=== PATIENT | male | born 1960 | race Caucasian/White ===

== ENCOUNTER 2017-09-21 07:50 | Day surgery (SDC) | payer BC ==
[~2017-09-21 07:50] MED LIST: Lactated Ringers 1,000 ML IV SCH; Sodium Chloride 0.9% 10 ML Syringe FLUSH PRN
[2017-09-21] MEDS ORDERED: Midazolam 1 MG/ML 2 ML SDV ONE ×2 (09:01→09:06)
[2017-09-21] MEDS ORDERED: fentaNYL 100 MCG/2 ML SDV ONE ×2 (09:01→09:06)
[2017-09-21] MEDS ORDERED: Propofol 200 MG/20 ML SDV ONE (09:02)
[2017-09-21] MEDS ORDERED: Lidocaine 2% 5 ML SDV ONE (09:06)
--- NOTE | 2017-09-21 09:06 | PCM.HPR ---
H & P Addendum review - H & P Addendum Review Date of Original H & P: 08/30/17 Date Reviewed: 09/21/17 Time Reviewed: 09:00 Patient was Examined: Changes (Dysphasia has improved since taking Nexium daily)
--- NOTE | 2017-09-21 09:25 | PCM.OPNOTE ---
- General Post-Op/Procedure Note Date of Surgery/Procedure: 09/21/17 Operative Procedure(s): EGD with Bx Findings: Distal Esophagatis / erosion Pre Op Diagnosis: GERD with dysphasia Post-Op Diagnosis: Same Anesthesia Technique: MAC Primary Surgeon: Rigoberto Moncada Anesthesia Provider: Deysi Agosto Pathology: Distal Esophagus EBL in mLs: 0 Complications: None Condition: Good
[2017-09-21 09:50] VITALS: BP 114/81
--- NOTE | 2017-09-21 16:53 | OR ---
Date of Procedure: 09/21/2017 PREOPERATIVE DIAGNOSIS: Gastroesophageal reflux disease with dysphagia. POSTOPERATIVE DIAGNOSIS: Distal esophagitis with erosion. PROCEDURE: EGD with biopsy. ANESTHESIA: IV sedation. PROCEDURE: Patient was brought to the procedure room where he was placed on the left side and IV sedation administered. Oral bite block was placed and the upper endoscope advanced into the esophagus under direct vision without difficulty. Vocal cords were viewed and were normal. The scope was advanced to the 3rd portion of the duodenum. Duodenum and pylorus were normal. Antrum and body of the stomach were normal. Retroflexion reveals a normal-appearing fundus. No hiatal hernia is present. Squamocolumnar junction is slightly irregular and there is one erosion present in the distal esophagus. I did not see any evidence of Sun's esophagus. Photographs were taken. I did take 4- quadrant biopsies from the distal esophagus and sent for pathology review. No stricture was present. Air was removed from the stomach and the scope withdrawn through the remaining esophagus, which appears normal. The patient will follow up with Lauren Flores in 1 week for review of pathology report. His symptoms are much improved since he is now taking Nexium on a regular basis. I recommend he remain on this long-term as he seems to have worsening and recurrent symptoms when he misses his medication. No further followup is necessary. If any evidence of Sun's esophagus is present, he should undergo a repeat upper endoscopy again in 3 years. AMILCAR ADAMS MD /[id number]
== END 2017-09-21 10:51 | disposition home or self-care (01) ==
LOC: LL.SDS 07:50
PROVIDERS: ATTEND Surgery
DX: K21.0 Gastro-esophageal reflux disease with esophagitis (principal); E78.5 Hyperlipidemia, unspecified; Z79.82 Long term (current) use of aspirin; Z98.890 Other specified postprocedural states; Z79.899 Other long term (current) drug therapy
CPT/HCPCS: 43239; J2250; J3010; J7120

== ENCOUNTER 2023-07-13 12:13 | Emergency (ER) | payer BC ==
[2023-07-13] MEDS ORDERED: Aspirin 81 MG Tab.Chew PO ONE ×2 (12:26→12:52)
[2023-07-13] MEDS ORDERED: Sodium Chloride 0.9% 1,000 ML IV ONE (12:52)
[2023-07-13 12:56] LABS: BASOPHILS ABSOLUTE AUTO 0.03 K/uL (0.00-0.20); BASOPHILS PERCENT AUTO 0.3 % (0.0-2.0); EOSINOPHILS ABSOLUTE AUTO 0.11 K/uL (0.00-0.50); HEMATOCRIT 46.8 % (39.0-49.0); HEMOGLOBIN 16.3 g/dL (13.1-16.8); LYMPHOCYTES ABSOLUTE AUTO 1.92 K/uL (0.50-3.50); LYMPHOCYTES PERCENT AUTO 16.6 % (10.0-50.0); MEAN CORPUSCULAR HEMOGLOBIN 28.5 pg (28.2-33.3); MEAN CORPUSCULAR HGB CONC 34.8 g/dL (31.7-36.0); MEAN CORPUSCULAR VOLUME 81.8 fL (84.0-98.0); MONOCYTES ABSOLUTE AUTO 0.88 K/uL (0.00-1.00); MONOCYTES PERCENT AUTO 7.6 % (2.0-14.0); NEUTROPHILS ABSOLUTE AUTO 8.63 K/uL (1.40-7.00); NEUTROPHILS PERCENT AUTO 74.5 % (45.0-80.0); PLATELET COUNT,PLT 261 K/uL (150-350); RED BLOOD CELL COUNT 5.72 M/uL (4.33-5.41); WHITE BLOOD CELL COUNT,WBC 11.6 K/uL (4.0-10.2)
[2023-07-13 13:09] LABS: CALCIUM IONIZED,POC 1.21 mmol/L (1.12-1.32); CREATININE,POC 1.12 mg/dL (0.51-1.19); POTASSIUM,POC 4.4 mmol/L (3.5-4.5)
[2023-07-13 14:12] LABS: A/G RATIO 1.06; ALBUMIN 3.8 g/dL (3.4-5.0); BILIRUBIN TOTAL 0.5 mg/dL (0.2-1.0); PROTEIN TOTAL,TP 7.4 g/dL (6.4-8.2)
[2023-07-13 14:33] LABS: BILIRUBIN DIRECT 0.1 mg/dL (0.0-0.2); BILIRUBIN INDIRECT 0.4 mg/dL; MAGNESIUM 1.9 mg/dL (1.8-2.4)
[2023-07-13 14:35] LABS: CORONAVIRUS COVID-19 NAA NEGATIVE (NEGATIVE); INFLUENZA A NAA NEGATIVE (NEGATIVE); INFLUENZA B NAA NEGATIVE (NEGATIVE); RESPIRATORY SYNCYTIAL VIR NAA NEGATIVE (NEGATIVE)
[2023-07-13 15:04] LABS: APPEARANCE,URINE TURBID; BILIRUBIN,URINE SMALL (NEGATIVE); COLOR,URINE YELLOW; GLUCOSE,URINE NEGATIVE (NEGATIVE); KETONES,URINE TRACE mg/dL (NEGATIVE); LEUKOCYTE ESTERASE,URINE NEGATIVE (NEGATIVE); NITRITE,URINE NEGATIVE (NEGATIVE); OCCULT BLOOD,URINE TRACE-LYSED (NEGATIVE); PROTEIN,URINE 100 mg/dL (NEGATIVE); UROBILINOGEN,URINE 0.2 E.U./dL (0.2-1.0)
[2023-07-13 15:14] LABS: HYALINE CASTS,URINE MANY; WBC,URINE 0-5 /HPF
[2023-07-13] MEDS ORDERED: Sodium Chloride 0.9% 1,000 ML IV SCH (16:15)
[2023-07-13 17:15] VITALS: BP 124/87; PULSE 50
[2023-07-13] MEDS ORDERED: LORazepam 0.5 MG Tab PO ONE (17:29)
== END 2023-07-13 18:00 ==
LOC: LL.ED 12:13
DX: R55 Syncope and collapse (principal); R00.1 Bradycardia, unspecified; R77.8 Other specified abnormalities of plasma proteins; I10 Essential (primary) hypertension; Z79.82 Long term (current) use of aspirin; E66.9 Obesity, unspecified; Z68.36 Body mass index [BMI] 36.0-36.9, adult; Z20.822 Contact with and (suspected) exposure to COVID-19
CPT/HCPCS: 0241U; 36415; 71046; 74018; 80047; 80076; 81001; 83605; 83735; 83880; 84443; 84484; 85025; 85379; 93005; 96360; 96361; 99285-25; A9270-GY; J7030

== ENCOUNTER 2024-01-30 09:32 | Emergency (ER) | payer BC ==
[2024-01-30] MEDS ORDERED: Nitroglycerin 0.4 MG Tab.SL SL ONE (10:00)
[2024-01-30 10:08] LABS: BASOPHILS ABSOLUTE AUTO 0.03 K/uL (0.00-0.20); BASOPHILS PERCENT AUTO 0.3 % (0.0-2.0); EOSINOPHILS ABSOLUTE AUTO 0.18 K/uL (0.00-0.50); HEMATOCRIT 48.5 % (39.0-49.0); LYMPHOCYTES ABSOLUTE AUTO 2.36 K/uL (0.50-3.50); LYMPHOCYTES PERCENT AUTO 26.3 % (10.0-50.0); MEAN CORPUSCULAR HEMOGLOBIN 28.7 pg (28.2-33.3); MEAN CORPUSCULAR HGB CONC 35.1 g/dL (31.7-36.0); MEAN CORPUSCULAR VOLUME 81.9 fL (84.0-98.0); MONOCYTES ABSOLUTE AUTO 0.82 K/uL (0.00-1.00); MONOCYTES PERCENT AUTO 9.2 % (2.0-14.0); NEUTROPHILS ABSOLUTE AUTO 5.57 K/uL (1.40-7.00); NEUTROPHILS PERCENT AUTO 62.2 % (45.0-80.0); PLATELET COUNT,PLT 203 K/uL (150-350); RED BLOOD CELL COUNT 5.92 M/uL (4.33-5.41); RED CELL DISTRIBUTION WIDTH 15.5 % (11.2-14.1)
[2024-01-30 10:22] LABS: ANION GAP 10.7 meq/L (7-15); BLOOD UREA NITROGEN,BUN 23 mg/dL (7-18); CALCIUM 8.8 mg/dL (8.5-10.1); CARBON DIOXIDE,CO2 26.3 mmol/L (21.0-32.0); CHLORIDE,CL 105 mmol/L (98-107); CREATININE 1.25 mg/dL (0.51-1.17); GLUCOSE RANDOM 124 mg/dL (70-99); POTASSIUM,K 4.2 mmol/L (3.5-5.1); SODIUM,NA 142 mmol/L (136-145)
[2024-01-30 10:23] LABS: ESTIMATED GFR 65 mL/min (>=60)
[2024-01-30] MEDS: Tranexamic Acid 1,000 MG/10 ML Vial TOP ONE (10:30)
[2024-01-30] MEDS: Acetaminophen 500 MG Tab PO ONE (12:21)
[2024-01-30] MEDS: Metoprolol Succinate 25 MG Tab.ER PO ONE (12:41)
[2024-01-30 14:20] VITALS: BP 147/91
[2024-01-30 15:14] VITALS: PULSE 59
== END 2024-01-30 13:54 | disposition home or self-care (01) ==
LOC: LL.ED 09:32
DX: R04.0 Epistaxis (principal); I10 Essential (primary) hypertension; E78.00 Pure hypercholesterolemia, unspecified; E66.9 Obesity, unspecified; I25.2 Old myocardial infarction; K21.9 Gastro-esophageal reflux disease without esophagitis; Z79.82 Long term (current) use of aspirin; Z79.899 Other long term (current) drug therapy; Z95.5 Presence of coronary angioplasty implant and graft
CPT/HCPCS: 30901; 30903; 36415; 80048; 84484; 85025; 93005; 93010; 99283-25; 99284; A9270-GY; J3490

== ENCOUNTER → 2024-10-24 | Day surgery (SDC) | payer BC ==
[~2024-10-24] MED LIST changes: +Glycopyrrolate 0.2 MG/ML SDV IVPUSH ONE; -Lactated Ringers 1,000 ML IV SCH; +Lidocaine 2% 5 ML SDV ONE; +Midazolam 1 MG/ML 2 ML SDV ONE; +Propofol 200 MG/20 ML SDV ONE
[2024-10-24 13:24] VITALS: BP 130/87; PULSE 61
[2024-10-24] MEDS: Lactated Ringers 1,000 ML IV SCH (13:36)
== END ==
LOC: LL.SDS 12:28
PROVIDERS: ATTEND Surgery
DX: Z12.11 Encounter for screening for malignant neoplasm of colon (principal); K21.9 Gastro-esophageal reflux disease without esophagitis; K62.1 Rectal polyp; K57.30 Diverticulosis of large intestine without perforation or abscess without bleeding; I12.9 Hypertensive chronic kidney disease with stage 1 through stage 4 chronic kidney disease, or unspecified chronic kidney disease; N18.30 Chronic kidney disease, stage 3 unspecified; E78.5 Hyperlipidemia, unspecified; I25.2 Old myocardial infarction; Z86.0100 Personal history of colon polyps, unspecified; Z79.82 Long term (current) use of aspirin; Z79.899 Other long term (current) drug therapy
CPT/HCPCS: 00813; J1596; J2250; J2704; J3490; J7120